=== PATIENT | male | born 1965 | race Caucasian/White ===

== ENCOUNTER → 2022-02-13 09:08 | Outpatient (CLI) | payer OTHER, SELFPAY ==
[2022-02-13 11:42] LABS: COVID19 -Nasal RAPID Negative (Negative)
== END ==
PROVIDERS: Visit Provider Family Medicine Sleep Medicine
DX: Z20.822 Contact with and (suspected) exposure to COVID-19 (principal)
CPT/HCPCS: 87635; C9803

== ENCOUNTER 2022-02-15 12:36 | Day surgery (SDC) | payer OTHER, SELFPAY ==
--- NOTE | 2022-02-15 12:23 | PM.PREOP ---
Pre-operative Note COVID-19 COVID-19 status: Negative Result date/Date tested (Pos, Neg/Pending): 02/13/22 Interval Note History & Physical reviewed/Exam performed by Physician: Yes Changes to H&P: No ASA Class (for procedural sedation): II
--- NOTE | 2022-02-15 12:24 | PM.OP.COLON ---
Operative Date/Time/Diagnoses Date of procedure: 02/15/22 Procedure Notes SCOAP/Timeout: 1:16 p.m. Procedure in detail: ENDOSCOPIST: Bronwyn Tong MD Sedation RN: Leonila Zuniga RN Sedation start time: 1:17 p.m. Sedation end time: 1:44 p.m. PROCEDURE: Colonoscopy INDICATIONS: 1. Family history of colon cancer 2. Screening for colon cancer MEDICATION: Levsin 0.125 mg sublingual, incremental doses of Versed and fentanyl until appropriate level sedation achieved. ASA CLASS: 2 CECAL WITHDRAWAL TIME: 7 minutes COMPLICATIONS: None. EXTENT OF PROCEDURE: Cecum. QUALITY OF PREP: Good with portions of liquid stool. PROCEDURE: Prior to insertion of the colonoscope, a digital rectal examination was accomplished with circumferential palpation of the distal rectal mucosa without significant findings being noted. The high-definition colonoscope was passed into the rectum in the usual fashion and advanced over to the cecum without difficulty. The ileocecal valve, appendiceal stoma, and medial wall all could be inspected and no abnormalities were seen. ASCENDING COLON: As the colonoscope was withdrawn, care was taken to expose and inspect the haustral folds and no abnormalities were seen. HEPATIC FLEXURE: Normal, no polyps, diverticula or other abnormalities. TRANSVERSE COLON: Normal, no polyps, diverticula or other abnormalities. DESCENDING COLON: Normal, no polyps, diverticula or other abnormalities. SIGMOID COLON: Normal, no polyps, diverticula or other abnormalities. RECTUM: Normal. J maneuver was produced. There was no significant perianal disease. The J maneuver was broken. The remainder of the rectum was inspected and there was no external hemorrhoid disease. The scope was withdrawn. IMPRESSION: 1. Normal colonoscopy PLAN: 1. Repeat colonoscopy in 5 years secondary to family history. The possibility of a missed lesion including a malignancy has been discussed with the patient previously. Potential alarm symptoms have been discussed and should be reported immediately.
--- NOTE | 2022-02-15 12:26 | PM.HP.1 ---
History of Present Illness History of Present Illness Date Patient Seen: 02/15/22 Chief complaint: SCREENING COLONOSCOPY Narrative: 56 year old male comes in today for consideration of a screening colonoscopy. There have been no lower GI symptoms suggesting disease such as change in bowel habits, bleeding, abdominal pain or anemia. Family history of colon cancer in his mother. Overall health issues have been stable, including no major cardiac events for at least 6 weeks. PCP: Dr. Tong Past Medical History: Foot pain, right HYPERLIPIDEMIA MITRAL VALVE PROLAPSE PAROXYSMAL ATRIAL TACHYCARDIA ERECTILE DYSFUNCTION ROSACEA ALOPECIA Past Surgical History: Knee Arthroscopy L medial meniscus, 10/05/12 Vasectomy Family History: Thyroid Disease mom Family Hx Colon Cancer-mother age 60 Family Hx Prostate Cancer dad Brain tumor, father Social History: Marital Status: Karolina, 06/27/67 Children: Son Matty Occupation: standards engineer, [employer] Household Members: 3 Education: high school Patient History Medical History (Updated 02/15/22 @ 12:58 by Tina Canchola RN) Hypercholesteremia Mitral valve disorder Paroxysmal atrial tachycardia Surgical History (Updated 02/15/22 @ 12:58 by Tina Canchola RN) H/O arthroscopy of right knee Meds Home Medications and Allergies Home Medications Medication Instructions Recorded Confirmed Type atenolol 25 mg tablet 25 mg PO DAILY 02/15/22 02/15/22 History Allergies Allergy/AdvReac Type Severity Reaction Status Date / Time No Known Drug Allergies Allergy Verified 02/15/22 12:51 Review of Systems Review of Systems Narrative: All remaining ROS were reviewed and negative except as addressed. Exam Narrative Exam Narrative: GENERAL: Alert and oriented, appearing stated age and in no acute distress. HEENT: Head normocephalic/atraumatic. Extraocular movements intact. LUNGS: Clear to ausculation bilaterally, no wheezes, rhonchi or rales. CV: Normal S1 and S2 with regular rate and rhythm, no audible murmurs, rubs or gallops. ABDOMEN: Soft, non-tender, non-distended, no organomegaly. Positive bowel sounds. EXTREMITIES: No clubbing, cyanosis, or edema. NEURO: Cranial nerves II through XII grossly intact, no focal deficits. PSYCH: Alert and oriented x 3. SKIN: No concerning lesions. Assessment & Plan Assessment & Plan narrative: 1. Family history of colon cancer, mother 2. Screening for colon cancer Plan for colonoscopy. The nature and character of the procedure as well as anticipated results were discussed. The possibility of not completing the procedure was also discussed. Possible complications including aspiration pneumonia, bleeding, perforation and reaction to medications either for sedation or preparation and missed lesions were discussed. Questions were answered and proceeding to the colonoscopy was elected. Informed consent signed. I sincerely appreciate the referral allowing me to participate in this patient's care. Please contact me with any questions or concerns.
[2022-02-15 12:58] VITALS: BMI 26.9
[2022-02-15] MEDS: HYOSCYAMINE 0.125 MG TABLET PO (13:07)
[2022-02-15] MEDS: LACTATED RINGERS 1,000 ML 200 ML IV (13:07)
[2022-02-15 13:11] VITALS: BP 120/78; PULSE 64; RESP 15; TEMP 36.3; O2SAT 98
[2022-02-15] MEDS: fentaNYL 250 MCG/5 ML INJ 100 MCG IV (13:20)
[2022-02-15] MEDS: MIDAZOLAM 5 MG/5 ML VIAL 6 MG IV (13:20)
[2022-02-15 13:50] VITALS: BP 102/70; PULSE 63; RESP 13; TEMP 36.2; O2SAT 94
[2022-02-15 13:55] VITALS: BP 104/75; PULSE 60; RESP 16; O2SAT 100
[2022-02-15 14:00] VITALS: BP 106/76; PULSE 68; RESP 16; TEMP 36.1; O2SAT 98
[2022-02-15 14:17] VITALS: BP 109/75; PULSE 60; RESP 16; TEMP 36.2; O2SAT 99
== END 2022-02-15 14:46 | disposition home or self-care (01) ==
PROVIDERS: PCP Student in an Organized Health Care Education/Training Program; Referring Provider Student in an Organized Health Care Education/Training Program; Visit Provider Student in an Organized Health Care Education/Training Program
PROC: 0DJD8ZZ Inspection of Lower Intestinal Tract, Via Natural or Artificial Opening Endoscopic (ICD-10-PCS; CPT 45378; principal; 2022-02-15 13:45)
DX: Z12.11 Encounter for screening for malignant neoplasm of colon (principal); Z80.0 Family history of malignant neoplasm of digestive organs
CPT/HCPCS: 45378; J2250; J3010

== ENCOUNTER → 2025-01-20 12:46 | Outpatient (CLI) | payer OTHER, SELFPAY ==
--- NOTE | 2025-01-20 12:48 | DI.RAD.S_ITS ---
PROCEDURE: XR DEXA AXIAL SKELETON INDICATIONS: SCREENING/MEDICATION SIDE EFFECT BONE DENSITY LOSS COMPARISON: None. FINDINGS: Lumbar Spine: Bone mineral density 0.996 g/cm2, T score -0.5. Left Femoral Neck: Bone mineral density 0.782 g/cm2, T score -0.6. Left Hip: Bone mineral density 0.97 per g/cm2, T score 0.3. Fracture Risk Calculation (when applicable): 10-year fracture risk of a major osteoporotic fracture 4.9 percent and of a hip fracture 0.4 percent. (T score greater or equal to -1.0 to: NORMAL) (T score from -1.1 to -2.4: OSTEOPENIA) (T score less than or equal to -2.5: OSTEOPOROSIS) IMPRESSION: Normal bone density of the lumbar spine, left femoral neck, and left hip. Follow-up guidelines as follows: Osteoporosis: Consider a repeat DEXA and Vertebral Fracture Assessment (VFA) exam in 2 years or sooner if medically necessary, to reassess this patient's status. Osteopenia: Consider a repeat DEXA in 2-3 years to reassess this patient's status, or if there is a new clinical indication. Normal: Consider a repeat DEXA in 5 years or sooner, or if there is a new clinical indication. All treatment decisions require clinical judgment and consideration of individual patient factors, including patient preferences, comorbidities, previous drug use, risk factors not captured in the FRAX model (e.g., frailty, falls, vitamin D deficiency, increased bone turnover, interval significant decline in bone density ) and possible under- or over-estimation of fracture risk by FRAX. In addition, the NOF Guide recommends that FDA-approved medical therapies be considered in postmenopausal women and men age >= 50 years with a: * Hip or vertebral (clinical or morphometric) fracture * T-score of <=-2.5 at the spine or hip * Ten-year fracture probability by FRAX of >= 3% for hip fracture or >=20% for major osteoporotic fracture. Dictated by: Kingsley Sheppard M.D. on 01/20/2025 at 16:41 Approved by: Kingsley Sheppard M.D. on 01/20/2025 at 16:43
== END ==
PROVIDERS: PCP Registered Nurse; Referring Provider Registered Nurse; Visit Provider Registered Nurse
DX: Z21 Asymptomatic human immunodeficiency virus [HIV] infection status (principal)
CPT/HCPCS: 77080